=== PATIENT | female | born 1975 | race Two or more races ===

== ENCOUNTER → 2016-03-30 | Outpatient (CLI) | payer MEDICAID ==
--- NOTE | 2016-03-30 14:58 | US ---
Ultrasound Pelvis Complete (Transabdominal and Endovaginal) Including Duplex/Doppler Imaging History: R10.2, pelvic pain. Technique: Transabdominal and endovaginal ultrasound images were obtained. Endovaginal images obtain ed for better evaluation of the uterine myometrium and adnexa. Duplex/Doppler imaging of adnexa. Findings: Uterus measures 8 x 6 x 5 cm. Endometrial thickness is 22 mm. A few subcentimeter nabothia n cysts in the cervix. No definite uterine leiomyomata. Right ovary measures 2.5 x 2.4 x 1.7 cm. Left ovary measures 3 x 2.4 x 1.5 cm. No adnexal masses. No significant free fluid in the pelvis. Color Doppler flow to both ovaries without torsion. Impression: 1. Abnormal endometrial thickening up to 22 mm. Consider endometrial biopsy. 2. No uterine leiomyomata. 3. No adnexal masses, ovarian torsion or ascites.
== END ==
LOC: BRMIMAGING 13:15
PROVIDERS: ATTEND Advanced Practice Midwife
DX: R93.8 Abnormal findings on diagnostic imaging of other specified body structures (principal); R10.2 Pelvic and perineal pain
CPT/HCPCS: 76856-PO